=== PATIENT | male | born 1980 | race Caucasian/White ===

== ENCOUNTER 2018-02-08 17:58 | Emergency (ER) | payer MEDICAID ==
[~2018-02-08] VITALS: Ht 165.1 cm; Wt 70.8 kg
[2018-02-08 18:24] VITALS: Ht 165.1 cm; Wt 70.8 kg
[2018-02-08 20:06] VITALS: BP 121/83
== END 2018-02-08 21:05 | disposition home or self-care (01) ==
LOC: ED 17:58
DX: S83.92XA Sprain of unspecified site of left knee, initial encounter (principal); W13.2XXA Fall from, out of or through roof, initial encounter; Y93.89 Activity, other specified; Y92.89 Other specified places as the place of occurrence of the external cause; Y99.8 Other external cause status